=== PATIENT | female | born 1995 | race Two or more races ===

== ENCOUNTER 2017-03-10 23:56 | Emergency (ER) | payer SELFPAY ==
[2017-03-11] MEDS ORDERED: Sodium Chloride 0.9% 1,000 ML IV SCH (01:30)
[2017-03-11 01:31] LABS: ACETAMINOPHEN < 10 ug/mL (10-30)
[2017-03-11 06:50] VITALS: BP 119/71
--- NOTE | 2017-03-12 09:43 | ER ---
DATE SEEN: 03/10/2017 TIME SEEN: The patient was seen at 0030 hours. CHIEF COMPLAINT: Depression. 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 to revisit the host family. She is scheduled to leave to go back for [place] on 03/16/2017. The patient has been depressed much of her life. She takes antidepressant medicines and today at 1500 hours was noted to have taken 40 tablets of 25 mg Benadryl and 10 tablets of Motrin 400 mg. She had depression in the past and self cutting issues. Apparently, four years ago when she was an exchange student, her parents sent her to [facility] because they thought "Americans are fat and overweight and the patient had anorexia problems and bulimia problems at that time and they thought she would gain weight if she came to [facility]." At one time, her weight dropped from 70 kilos down to 40 kilos. She has severe anorexia. She is staying with host family that she stayed with 4 years ago. Mother within the last 6 months of an unusual form of Parkinson disease. The patient has no other medical problems except for has allergy to house dust and tree pollen. No diabetes, heart disease, high blood pressure, asthma, or other serious illnesses or hospitalizations, except for at one time she was seen weekly for psychiatric care. Delving into the issues of depression, SIGECAPS: S: When I asked if she is suicidal, she said I think so. I: She feels helpless and hopeless, inadequate. G: She feels guilty. E: Energy is bad. C: Concentration okay. A: Anxiety, the patient states she has social worries. Has fears when she goes out in crowds, agoraphobia. Crowds make her heart rate increase. S: She is sad, but has not been crying. She does not have any hallucinations or delusions. In the past she had bulimia, placed her finger in her mouth to help herself vomit once a day. She is scared of gaining weight and is involved in recreational swimming. When I asked about how she felt, she said it is "hard for me". She does not know why she feels hopeless. She has had anorexia for the past 5 years, in 2013 she was hospitalized for 10 weeks, because of her anorexia her weight went down to 48 kilos. Her mother 15 months ago. Father is alive and well. Has one sibling sister, has one friend who is in [place] and her sister is her second friend. She feels very inadequate, as she "is not as skinny as other people are". She had friends who have anorexia. Her friends think "she looks better when she is healthy". "Sometimes, I like myself when I am healthy, but most of the time, I do not like myself." She does not feel like she fits in at school because she does "not dress like the other kids." Today, she felt depressed because on reviewing the pictures of the host family's foreign exchange students who have stayed in their house, she felt "I do not feel like I am enough." "I do not feel as happy and spontaneous or do not laugh as much as the other foreign exchange students." The patient notes she misses her mother as she was close to her mother. Mother was her source of support when she had these issues. Currently, she feels slightly dizzy. She has mild biparietal headache on top of her head, 4/10 in intensity, mild blurred vision. She denies difficulty passing urine. She passed urine an hour ago. Last meal was at 1900 hours, she ate a muffin. She ate a noon meal and she passed urine 1 hour ago. When I asked if she had any chest pain or abdominal pain, she pointed to her chest, she said she had "mild abdominal pain", but she was pointing to her lower sternum. Last menstrual period was three months ago, otherwise she has not had a menstrual period for 2 years. REVIEW OF SYSTEMS: Otherwise is negative except for she has mild tooth pain eight and nine (probably secondary to anorexia). No cavities. When I asked why she overdosed today, she said "I did not feel as good as the other exchange students, I felt I am not as funny. I am more sad than they are, when I saw the pictures of them today, I realized how sad I was. I just don't believe I am okay." She was not sure what it would take to make herself better. "I need someone to say to me that I am okay." Review of systems otherwise negative. ALLERGIES: Negative. MEDICATIONS: Negative. PHYSICAL EXAMINATION: VITAL SIGNS: Blood pressure 159/98, heart rate 138, respirations 16, oxygen saturation 99%. GENERAL: The patient is alert, appropriate, blinks her eyes frequently, moderate blepharospasm. She is tall and moderately muscular. No hirsutism noted. PERRLA intact. Pharynx without abnormality. Mild semi dry mucosa of her mouth. NECK: Supple. No thyromegaly. No masses in the neck. No cervical adenopathy. LUNGS: Clear to auscultation without rales, rhonchi, or wheezes. HEART: S1, S2. No irregular rate and rhythm. No S3, no S4. She has sinus tachycardia 138 to 125, sinus rhythm. No chest wall discomfort. ABDOMEN: Soft. No guarding. No abdominal discomfort. Bowel sounds are present. No CVA percussion tenderness. No spinous process tenderness. EXTREMITIES: Lower extremities without edema. MUSCLES: She is a muscular woman. NEURO: Deep tendon reflexes upper and lower extremities symmetrical 1+ normoactive. Cranial nerves 2 through 12 intact. Oriented x3. Gait appropriate. Romberg negative. No past pointing. No dysmetria. No paresis or weakness. She is a very strong woman. LABORATORY FINDINGS: Complete metabolic panel is negative except for sodium, which is mildly low at 134, chloride slightly low at 99, CBC is normal. Urine is normal. Urine tox screen suggests positive for tricyclics - the patient has not been using tricyclics, I asked the Laboratory if there is any possibility there was a false positive for tricyclics in urine and nothing came up on her database. The qualifier of the Alere test for urine and tricyclics to confirm. A more specific alternative method may be required to validate this tricyclic test. Alcohol is negative. Aspirin is negative. Acetaminophen is negative. EKG sinus tachycardia with QT corrected 464. Heart rate 113 on EKG. ASSESSMENT: 1. Overdose secondary to poor self concept. Dysthymia. I spoke to her father on visual picture while I was working and he seems not sure what to do. He noted that she had therapy every week in the past, but not for a long time. He seemed at loss what to do and was not very engaged or concerned about his daughter's status. He did not ask me any question about his daughter, but was groaning over the burden of trying to figure out how to solve this problem. 2. The patient's status was discussed with Poison Control. She is past the point for significant complications for anticholinergic effect of Benadryl should be affecting her. The symptoms she had that fit, she had mild ataxia, mild headache, mild blurred vision. She did not present with some of the other stigmata of anticholinergic poisoning, "She was not dry as a bone"; "red as a beet"; did not have rash; mad as a hatter; she did not have delirium; not hot as a potato, she was not warm, did not have elevated temperature. She had mild blurred vision and she did not have bladder retention of urine. PLAN: The host family father has discussed this status with her father. Arrangements were made for the patient to return to [place] today at 1237 hours, she would be put on a flight to [place] to [place] on to [facility]. Father will meet her at the airport. The patient will be staying here until 0700 hours until the host family father can pick her up and make arrangements for her transportations - drive her to [place]. /[id number] LINDY/WANDER ZHOU
== END 2017-03-11 07:35 | disposition home or self-care (01) ==
LOC: FB.ED 23:56
DX: T45.0X2A Poisoning by antiallergic and antiemetic drugs, intentional self-harm, initial encounter (principal); T39.312A Poisoning by propionic acid derivatives, intentional self-harm, initial encounter; R27.0 Ataxia, unspecified; G44.40 Drug-induced headache, not elsewhere classified, not intractable; H53.8 Other visual disturbances; F34.1 Dysthymic disorder; F41.8 Other specified anxiety disorders; Z91.5 Personal history of self-harm; Z86.59 Personal history of other mental and behavioral disorders; K08.89 Other specified disorders of teeth and supporting structures; N91.2 Amenorrhea, unspecified
CPT/HCPCS: 36415; 80053; 80305; 82962; 84702; 85025; 93005; G0480; J7040; 96360; 96361; 99284; 99285